=== PATIENT | male | born 1985 | race Caucasian/White ===

== ENCOUNTER 2019-06-03 10:29 | Inpatient (IN) ==
--- NOTE | 2019-06-03 10:41 | PROVIDER DOCUMENTATION ---
HPI-General Adult - General Chief Complaint: Psych-High Risk Stated Complaint: PSYCH Time Seen by Provider: 06/03/19 10:41 Source: patient Allergies/Adverse Reactions: Patient Allergies Allergy/AdvReac Type Severity Reaction Status Date / Time No Known Allergies Allergy Verified 08/26/18 05:30 Home Medications: Home Medication List Medication Instructions Recorded Confirmed Last Taken Type Famotidine [Pepcid] 20 mg PO BID #10 tab 08/26/18 Unknown Rx Prednisone 20 mg PO BID #10 tab 08/26/18 Unknown Rx Past History - Adult - PAST MEDICAL HISTORY-ADULT Major Childhood Illnesses: reports: denies history Cardiovascular: reports: denies history Respiratory: reports: denies history Gastrointestinal: reports: denies history Obstetrical/Gynecological: reports: denies history Genitourinary: reports: denies history Musculoskeletal: reports: denies history Neurological: reports: denies history Endocrine/Immune: reports: denies history Other Conditions: reports: denies history Progress - PLAN OF CARE/RESULTS Progress/Plan/Lab Results: Vital Signs - 8 hr 06/03/19 10:37 Temperature 98.3 F Pulse Rate 118 H Respiratory Rate 16 Blood Pressure 147/85 O2 Sat by Pulse Oximetry 97 Orders Category Date Time Status NEWS Score 2-4:Order NEWS Lactate Series NOW Care 06/03/19 10:39 Active LACTATE, PLASMA [CHEM] Q3H Lab 06/03/19 10:45 Uncollected LACTATE, PLASMA [CHEM] Q3H Lab 06/03/19 13:45 Uncollected LACTATE, PLASMA [CHEM] Q3H Lab 06/03/19 16:45 Uncollected Departure - Departure Referrals and Follow-Ups: None,PCP [Primary Care Provider] - Attestation - Physician/ SHAHEED Attestation Patient care was provided by Advanced Practice Provider:: Yes Advanced Practice Provider:: Lin Mcdaniel Advanced Practice Provider documentation review:: The Mid-level provider documentation, treatment plan and medical decision making was reviewed by the physician who agrees with all treatment and medical decision making by the [facility]. The physician spent face to face time with patient:: No Advanced Practice Provider documentation review:: Supervising physician onsite and consulted in the evaluation and care of this patient. The physician did not have a face to face encounter with the patient.
[2019-06-03 11:07] LABS: URINE SOURCE CLEAN CATCH
[2019-06-03 11:19] LABS: BILIRUBIN URINE NEGATIVE (NEGATIVE); BLOOD URINE TRACE (NEGATIVE); COLOR YELLOW; GLUCOSE URINE TRACE mg/dL (NEGATIVE); KETONE URINE TRACE mg/dL (NEGATIVE); LEUKOCYTES URINE NEGATIVE (NEGATIVE); NITRITE URINE NEGATIVE (NEGATIVE); PH URINE 5.5; PROTEIN URINE TRACE mg/dL (NEGATIVE); SP GRAVITY URINE 1.032; TURBIDITY URINE CLEAR (CLEAR); UROBILINOGEN URINE 4 mg/dL (NORMAL)
[2019-06-03 11:20] LABS: UR EPITHELIAL CELLS <10 /HPF (<10); URINE BACTERIA NEGATIVE /HPF; URINE RBC <10 /HPF (<10); URINE WBC <10 /HPF (<10)
[2019-06-03 11:31] LABS: UR AMPHETAMINES QUAL NONE DETECTED (NONE DETECT); UR BARBITUATES QUAL NONE DETECTED (NONE DETECT); UR BENZODIAZEPIN QUAL NONE DETECTED (NONE DETECT); UR CANNABINOIDS QUAL NONE DETECTED (NONE DETECT); UR COCAINE QUAL NONE DETECTED (NONE DETECT); UR METHADONE QUAL NONE DETECTED (NONE DETECT); UR OPIATES QUAL NONE DETECTED (NONE DETECT); UR OXYCODONE QUAL NONE DETECTED (NONE DETECT); UR PCP QUAL NONE DETECTED (NONE DETECT)
[2019-06-03] MEDS ORDERED: ZOFRAN IV PRN (15:51)
[2019-06-03] MEDS ORDERED: HALDOL IM PRN (15:51)
[2019-06-03 16:12] LABS: BASO# 0.02 X1000 (0.0-0.2); BASO% 0.2 % (0.0-0.8); EOS# 0.01 X1000 (0.0-0.7); EOS% 0.1 % (0.0-10.0); HEMOGLOBIN 16.9 g/dL (14.0-18.0); IMM GRAN# 0.02 X1000 (0.0-0.04); IMM GRAN% 0.2 % (0.0-0.5); LYMPH# 1.05 X1000 (1.2-3.4); LYMPH% 8.5 % (20.5-51.1); MCH 30.5 PG (27-31); MCHC 34.5 g/dL (33-37); MCV 88.4 FL (81-99); MONO# 0.74 X1000 (0.11-0.59); MPV 12.1 FL (7.4-10.4); PLT 254 X1000 (130-400); RBC 5.54 XMIL (4.7-6.1); RDW 12.6 % (11.5-14.5); WBC 12.34 X1000 (4.8-10.8)
[2019-06-03 16:24] LABS: AGAP 19; ALB/GLOB RATIO 1.5; ALBUMIN 4.4 g/dL (3.5-5.0); ALKALINE PHOSPHATASE 88 U/L (32-122); BUN 18 mg/dL (8-22); C REACTIVE PROT QUANT 1.65 mg/L (0.00-5.00); CALCIUM 10.2 mg/dL (8.8-10.2); CHLORIDE 100 mmol/L (98-107); COSMO 281; ESTIMATED GFR > 60; GLUCOSE 125 mg/dL (70-104); GOT 23 U/L (10-34); GPT 18 U/L (10-44); SODIUM 139 mmol/L (136-145); TCO2 20 mmol/L (25-35); TOTAL BILIRUBIN 0.52 mg/dL (0.20-1.00); TOTAL PROTEIN 7.3 g/dL (6.3-8.3)
[2019-06-03 17:05] LABS: TSH 1.43 uIUmL (0.27-4.20)
[2019-06-03 17:29] LABS: SED RATE 0 mm/hr (0-15)
[2019-06-03] MEDS ORDERED: ATIVAN PO ONE (17:41)
[2019-06-03] MEDS ORDERED: ATIVAN PO PRN (17:42)
[2019-06-03] MEDS: ATIVAN PO PRN (19:57)
[2019-06-03] MEDS: RISPERDAL M-TAB PO SCH (19:57)
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
[2019-06-04] MEDS: TYLENOL PO PRN ×2 (00:03→15:00)
[2019-06-04] MEDS: RISPERDAL M-TAB PO SCH ×2 (00:04→21:04)
[2019-06-04] MEDS: ATIVAN PO PRN ×3 (10:24→21:04)
[2019-06-04] MEDS: NICODERM PATCH TD PRN (11:54)
[2019-06-05] MEDS: HALDOL IV PRN ×2 (08:46→17:44)
[2019-06-05] MEDS: RISPERDAL M-TAB PO SCH (08:46)
[2019-06-05 15:31] VITALS: BP 116/77
[2019-06-05] MEDS: NICODERM PATCH TD PRN (17:39)
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
== END 2019-06-05 19:35 | disposition home or self-care (01) | DRG 885 ==
LOC: 3N 10:29 → ED 10:29 → OBSVTOIN 15:35
PROVIDERS: ATTEND Internal Medicine